=== PATIENT | male | born 1960 | race Caucasian/White ===

== ENCOUNTER → 2018-03-22 | Outpatient (CLI) | payer BC ==
--- NOTE | 2018-03-22 15:17 | XR ---
EXAMINATION TYPE: XR Hip Complete RT DATE OF EXAM: 03/22/2018 COMPARISON: NONE HISTORY: 57 year-old male right hip pain TECHNIQUE: 2 views FINDINGS: End-stage degenerative change of the right hip with complete loss of superolateral weightbearing join t space, [id number] articulation, subchondral sclerosis, marginal spurring, and early bony remodeli ng of the femoral head. No acute fracture or dislocation. IMPRESSION: End-stage right hip osteoarthrosis with [id number] abutment and early femoral head remodeling.
== END | disposition home or self-care (01) ==
LOC: RADXRMAIN 10:12
PROVIDERS: ATTEND Family Medicine
DX: M16.11 Unilateral primary osteoarthritis, right hip (principal)
CPT/HCPCS: 73502

== ENCOUNTER → 2018-06-21 | Outpatient (CLI) | payer BC ==
[2018-06-21 13:18] LABS: Appearance,Urine Clear (Clear); Bilirubin,Urine Negative (Negative); Blood,Urine Negative (Negative); Color,Urine Yellow; Glucose,Urine (UA) Negative (Negative); Ketones,Urine Negative (Negative); Leukocyte Esterase,Urine Negative (Negative); Nitrite,Urine Negative (Negative); Protein,Urine Negative (Negative); Specific Gravity,Urine 1.018 (1.001-1.035); Urobilinogen,Urine <2.0 mg/dL (<2.0)
== END | disposition home or self-care (01) ==
LOC: LABPAT 11:42
PROVIDERS: ATTEND Orthopaedic Surgery
DX: Z01.818 Encounter for other preprocedural examination (principal); Z01.812 Encounter for preprocedural laboratory examination
CPT/HCPCS: 81003; 87070; 93005

== ENCOUNTER → 2018-06-22 | Outpatient (CLI) | payer BC | END | disposition home or self-care (01) | LOC: LABPAT 08:36 | PROVIDERS: ATTEND Orthopaedic Surgery | DX: Z53.9 Procedure and treatment not carried out, unspecified reason (principal) ==

== ENCOUNTER → 2018-06-22 | Outpatient (CLI) | payer BC ==
[2018-06-22 10:23] LABS: Basophils % (A) 0 %; Eosinophils # (A) 0.2 k/uL (0-0.7); Eosinophils % (A) 2 %; HCT 47.5 % (39.0-53.0); HGB 15.3 gm/dL (13.0-17.5); Lymphocytes % (A) 22 %; MCH 30.1 pg (25.0-35.0); MCHC 32.3 g/dL (31.0-37.0); MCV 93.3 fL (80.0-100.0); Mean Platelet Volume 6.7; Monocytes # (A) 0.7 k/uL (0-1.0); Monocytes % (A) 8 %; Neutrophils % (A) 66 %; Platelet Count 304 k/uL (150-450); RBC 5.09 m/uL (4.30-5.90)
[2018-06-22 16:53] LABS: Albumin 4.3 g/dL (3.80-4.90); Albumin/Globulin Ratio 1.72 (1.20-2.10); Anion Gap 9.6 mmol/L (4.00-12.00); Calcium 9.3 mg/dL (8.7-10.3); Carbon Dioxide 26.4 mmol/L (21.6-31.8); Globulin 2.5 g/dL (2.1-3.7); Potassium 4.6 mmol/L (3.5-5.5); Total Bilirubin 0.6 mg/dL (0.2-1.2); Total Protein 6.8 g/dL (6.2-8.2)
[2018-06-22 17:03] LABS: T4, Free (Free Thyroxine) 1.2 ng/dL (0.80-1.80)
== END | disposition home or self-care (01) ==
LOC: LABWHC1 08:39
PROVIDERS: ATTEND Family Medicine
DX: Z00.00 Encounter for general adult medical examination without abnormal findings (principal); E78.00 Pure hypercholesterolemia, unspecified; Z85.46 Personal history of malignant neoplasm of prostate
CPT/HCPCS: 36415; 80053; 80061; 84153; 84439; 84443; 85025; 86850; 86900; 86901

== ENCOUNTER → 2018-06-28 | Outpatient (CLI) | payer BC ==
[2018-06-28 15:02] LABS: INR 0.9 (<1.2); Partial Thromboplastin Time 23.6 sec (22.0-30.0); Prothrombin Time 10.2 sec (9.0-12.0)
== END ==
LOC: LABPAT 14:07
PROVIDERS: ATTEND Orthopaedic Surgery
DX: Z01.818 Encounter for other preprocedural examination (principal)
CPT/HCPCS: 36415; 85610; 85730

== ENCOUNTER 2018-07-01 05:46 | Inpatient (IN) | payer BC ==
[2018-06-26 18:28] VITALS: BMI 33.7
[~2018-07-01 05:46] MED LIST: ACETAMINOPHEN TAB 500 MG TAB PO ONE; DEXAMETHASONE SOD PHOSPHATE 10 MG/ML 1 ML VIAL IV ONE; HYDROmorphone 1 MG/ML 1 ML SYRINGE IVP PRN; LIDOCAINE 1% 20 ML VIAL (10MG/ML) FOR IV START INTRADERMA PRN; MELOXICAM 7.5 MG TAB PO ONE; MIDAZOLAM 2 MG/2 ML VIAL IV PRN; ONDANSETRON 4 MG/2 ML VIAL IVP ONE; SCOPOLAMINE 1.5MG/72HR PATCH TRANSDERM ONE; TRANEXAMIC ACID 1,000 MG in SODIUM CHLORIDE 0.9% 50 ML IVPB ONE; ceFAZolin IN SWFI 2 GM/20 ML SYRINGE IVP ONE
[2018-07-01] MEDS ORDERED: ROPIVACAINE 246.25 MG, EPINEPHrine 0.5 MG, KETOROLAC 30 MG, cloNIDine HCL/PF 80 MCG, WA... MISCELLANE ONE ×5 (06:08)
[2018-07-01] MEDS ORDERED: LIDOCAINE 1% 20 ML VIAL (10MG/ML) FOR IV START INTRADERMA ONE (06:15)
[2018-07-01] MEDS ORDERED: LACTATED RINGERS 1,000 ML IV ONE ×2 (06:18→08:30)
[2018-07-01] MEDS ORDERED: ONDANSETRON 4 MG/2 ML VIAL IVP ONE (06:41)
[2018-07-01] MEDS ORDERED: DEXAMETHASONE SOD PHOS (MDV) 100 MG/10 ML VIAL IVP ONE (06:41)
[2018-07-01 06:55] LABS: Prothrombin Time 10.6 sec (9.0-12.0)
[2018-07-01] MEDS ORDERED: PHENYLEPHRINE-0.9% NACL SYG 1 MG/10 ML SYRINGE ONE (06:55)
[2018-07-01] MEDS ORDERED: DEXTROSE 5% IN WATER 250 ML BAG IV ONE (06:55)
[2018-07-01] MEDS ORDERED: MIDAZOLAM 2 MG/2 ML VIAL ONE (06:55)
[2018-07-01] MEDS ORDERED: BUPIVACAINE (PF) 0.5% 30 ML VIAL ONE (06:55)
[2018-07-01] MEDS ORDERED: SODIUM CHLORIDE 0.9% 100 ML BAG ONE (06:55)
[2018-07-01] MEDS ORDERED: ePHEDrine SULFATE/0.9% NACL/PF 50 MG/5 ML SYRINGE IV ONE (06:55)
[2018-07-01] MEDS ORDERED: fentaNYL (PF) 50 MCG/ML 2 ML AMP ONE (06:55)
[2018-07-01] MEDS ORDERED: TRANEXAMIC ACID 1,000 MG/10 ML VIAL ONE (06:55)
[2018-07-01] MEDS ORDERED: NALOXONE 0.4 MG/ML 1 ML VIAL IV PRN (06:56)
[2018-07-01] MEDS ORDERED: HYDROmorphone 1 MG/ML 1 ML SYRINGE IVP PRN ×3 (06:56)
[2018-07-01] MEDS ORDERED: HYDROcodone/APAP 5-325MG 1 EACH TAB PO PRN (06:56)
[2018-07-01] MEDS ORDERED: ONDANSETRON 4 MG/2 ML VIAL IVP PRN (06:56)
[2018-07-01] MEDS ORDERED: MAGNESIUM HYDROXIDE 2,400 MG/10 ML CUP PO PRN (06:56)
[2018-07-01] MEDS ORDERED: hydrOXYzine PAMOATE 25 MG CAP PO PRN (06:56)
[2018-07-01] MEDS ORDERED: DIAZEPAM 5 MG TAB PO PRN (06:56)
[2018-07-01] MEDS ORDERED: ceFAZolin 3,000 MG in SODIUM CHLORIDE 0.9% IRRIGATIO 3,000 ML IRRIGATION ONE (07:34)
--- NOTE | 2018-07-01 08:37 | P.OP ---
Date of Procedure: 07/01/18 Preoperative Diagnosis: Severe osteoarthritis right hip Postoperative Diagnosis: Severe osteoarthritis right hip Procedure(s) Performed: Right total hip arthroplasty with a direct anterior approach Implants: Helm and nephew Polarstem size 2 standard Helm & Nephew R3, 3 hole acetabular shell, 54 mm Helm & Nephew reflection 6.5 mm cancellus screw, 20 mm 2 Helm [employer] Nephew R3, XLPE 20 acetabular liner Helm & Nephew Oxinium femoral head 36 m, +4 All components were press-fit. The articulation is Oxinium on polyethylene. Anesthesia: spinal Surgeon: Lopez [place] Director #1: Karina Hough Estimated Blood Loss (ml): 150 (65 mL returned with Cell Saver) Pathology: other (Femoral head) Condition: stable Disposition: PACU Indications for Procedure: After failure of conservative treatment we discussed the surgical and nonsurgical treatment options at length. Patient wishes to proceed with a total hip arthroplasty with a direct anterior approach. Complications specific to this procedure were discussed at length, including but not limited to infection, leg length discrepancy, dislocation, and nerve injury. Patient is aware of all these complications and informed consent was obtained Operative Findings: The operative findings are consistent with severe osteoarthritis of the right hip Description of Procedure: Patient was seen and evaluated in the preoperative area, consent was reviewed, and the surgical site was marked with a skin marker. Patient was then brought to the operating room and given prophylactic antibiotics intravenously. 1 g of Tranexamic acid was also given. A spinal anesthetic was administered by the anesthesia department. The patient was then placed on the Dresden table with the bony prominences well-padded. The hip area was then prepped and draped in usual sterile fashion. A universal timeout was then performed, which confirmed the patient's name, surgical site, ALLERGIES, and procedure being performed. Next the incision site was located at 1 cm distal and 1 cm lateral to the anterior superior iliac spine. The skin and subcutaneous tissues were sharply incised. Incision was carefully dissected down to the fascia overlying the tensor fascia willam muscle. This fascia was then incised in line with the incision. Next, using blunt finger dissection, the tensor fascia willam muscle was dissected off its investing fascia. The muscle was then carefully retracted laterally with a cobra retractor over the lateral neck of the femur. Next, the circumflex vessels were identified and cauterized using the AquaMantis device. The anterior hip capsule was then exposed. The capsule was then opened and an inverted T fashion. Cobra retractors were then placed intracapsularly. The proximal femur was then visualized. The femoral neck was then osteotomized appropriate level above the lesser trochanter. Small amount of traction was placed with the Dresden table. A small wedge of bone was then removed from the remaining femoral head. Next, using a corkscrew femoral head was easily removed from the acetabulum. On gross visual inspection, the femoral head had complete loss of articular cartilage in multiple periarticular osteophytes. Attention was then turned to the acetabulum. the acetabulum was exposed and any remaining labrum was excised. Sequential reaming of the acetabulum was performed using fluoroscopic guidance. When the appropriate size was reached, a trial was then placed. The position and fit of the trial was checked with fluoroscopy. The trial was then removed. Then, using fluoroscopic guidance, the final implant was impacted at 20 of anteversion and 40 of abduction, and fully seated in the acetabulum. 2 screws were then placed in the acetabulum. Again fluoroscopy was used to check position of the screws. Next, the liner was then impacted, with a 20 elevated liner located in the anterior superior quadrant. Component locking was confirmed. Attention was then directed to the femur. With the aid of the Dresden table, the femur was externally rotated to approximately 130, extended, and abducted under the opposite leg. A side hook was then placed under the proximal femur, and the side hook elevator was used to elevate the proximal femur. Retractors were then placed. A capsular release was performed, as well as a release of the conjoined tendon, which afforded excellent visualization of the proximal femur. Next, a box osteotome was used to lateralize the proximal femur. A sail finisher hand was then used to locate the femoral canal. Sequential broaching was then performed with appropriate size which afforded excellent fixation in the proximal femur. A trial was then placed with appropriate head and neck, and the hip was gently reduced with the aid of the Dresden table. Fluoroscopy was then used to check position of the components, as well as to ensure equal leg lengths. The hip was then gently dislocated and the trials were then removed. Final implants were then impacted and the hip was again reduced. Final fluoroscopic x-rays confirmed that the components were in anatomic position, as well as equal leg lengths. The hip was also taken through range of motion, and found to be stable. The hip was then copiously irrigated with antibiotic solution with pulsatile lavage. The hip was then irrigated with Irrisept solution. The soft tissues were then injected with a ropivacaine solution, which consisted of 246.25 mg of ropivacaine, 0.5 mg of epinephrine, 30 mg of Toradol, 80 g of clonidine, and 48.45 mL of sterile water, for a total of 100 mL of fluid injected. A second dose of 1 g of Tranexamic acid was also given. the fascia was then closed with 2-0 strata fix suture. The subcutaneous tissue was closed with 3-0 Vicryl. The subcuticular tissue was closed with 3-0 strata fix suture. The skin was then closed with Dermabond glue and a sterile silver dressing. The patient was then transferred to the recovery room in stable condition. The property assistant ANUPAMA Rodriguez was required due to the complexity of surgery, and the need for skilled surgical services coordinator for positioning, draping, exposure, retraction, and closure of the wound.
--- NOTE | 2018-07-01 08:41 | XR ---
Fluoroscopy INDICATION: Pain FINDINGS: Fluoroscopy time: 59 seconds. Images obtained: 2. IMPRESSIONS: 1. Documentation of fluoroscopy.
--- NOTE | 2018-07-01 09:35 | XR ---
EXAMINATION TYPE: XR Hip Limited RT DATE OF EXAM: 07/01/2018 COMPARISON: 03/22/2018 HISTORY: Right hip prosthesis placement TECHNIQUE: Single AP right hip FINDINGS: Prosthesis is articulating with the acetabular component. No acute fractures are evident. P ostsurgical changes are within soft tissues. IMPRESSION: 1. No acute fractures post right hip replacement.
[2018-07-01] MEDS: LACTATED RINGERS 1,000 ML IV SCH ×2 (09:44→18:59)
[2018-07-01] MEDS: SODIUM CHLORIDE 0.9% 1,000 ML IV SCH ×2 (10:55→23:23)
[2018-07-01] MEDS: ceFAZolin IN SWFI 2 GM/20 ML SYRINGE IVP SCH ×2 (15:34→23:13)
[2018-07-01] MEDS ORDERED: RIVAROXABAN 10 MG TAB PO SCH (21:00)
[2018-07-01] MEDS ORDERED: SENNOSIDES-DOCUSATE SODIUM 1 EACH TAB PO SCH (21:00)
[2018-07-01] MEDS: HYDROcodone/APAP 5-325MG 1 EACH TAB PO PRN (23:21)
[2018-07-02] MEDS: HYDROcodone/APAP 5-325MG 1 EACH TAB PO PRN (08:12)
[2018-07-02 08:18] VITALS: BP 121/72; PULSE 90; RESP 16; TEMP 98
--- NOTE | 2018-07-02 09:36 | P.DS ---
Providers Date of admission: 07/01/18 05:46 Expected date of discharge: 07/02/18 Attending physician: Lopez Willis Consults: 07/01/18 06:56 Consult Physician Routine Consulting Provider: Glen Degroot Consult Reason/Comments: medical management Do you want consulting provider notified?: Yes Primary care physician: Glen Degroot - Discharge Diagnosis(es) (1) Primary osteoarthritis of right hip Current Visit: Yes Status: Acute (2) S/P total hip arthroplasty Current Visit: Yes Status: Acute Hospital Course: This is a 57-year-old male with known history of degenerative arthritis of the right hip. The patient presents for evaluation. After discussion and consideration patient elects to proceed with total hip arthroplasty. The patient is seen preoperatively by Dr. Willis and medically cleared for surgery by their primary care physician. Patient is admitted to [facility] on 07/01/2018 for total hip arthroplasty. The procedures performed without complication or sequelae. The patient is doing well postoperatively. Labs and vital signs are stable on day of discharge. On day of discharge patient's hip incision is healing well. There is minimal erythema. There is no drainage noted at this time. There is minimal soft tissue swelling to the hip and thigh. Patient has full foot and ankle motion without difficulty or pain. Neurovascular status to the right lower extremity is intact. Patient is discharged home in good condition. Please see med rec for accurate list of home medications. Plan - Discharge Summary Discharge Rx Participant: Yes New Discharge Prescriptions: New HYDROcodone/APAP 5-325MG [[place] 5-325] 1 - 2 tab PO Q4-6H PRN #84 tab PRN Reason: Pain Rivaroxaban [Xarelto] 10 mg PO DAILY #34 tab Sennosides [Senokot] 1 tab PO BID #60 tablet No Action Fenofibrate [Tricor] 160 mg PO AC-SUPPER Acetaminophen [Tylenol Extra Strength] 500 - 1,000 mg PO Q6H PRN PRN Reason: Pain Ibuprofen [Motrin Ib] 400 mg PO Q6H PRN PRN Reason: Pain Discharge Medication List Fenofibrate [Tricor] 160 mg PO AC-SUPPER 11/26/14 [History] Acetaminophen [Tylenol Extra Strength] 500 - 1,000 mg PO Q6H PRN 06/26/18 [ History] Ibuprofen [Motrin Ib] 400 mg PO Q6H PRN 06/26/18 [History] HYDROcodone/APAP 5-325MG [[place] 5-325] 1 - 2 tab PO Q4-6H PRN #84 tab 07/02/18 [ Rx] Rivaroxaban [Xarelto] 10 mg PO DAILY #34 tab 07/02/18 [Rx] Sennosides [Senokot] 1 tab PO BID #60 tablet 07/02/18 [Rx] Follow up Appointment(s)/Referral(s): Lopez Willis DO [Doctor of Osteopathic Medicine] - 2 Weeks Activity/Diet/Wound Care/Special Instructions: Weightbearing as tolerated with walker. Leave dressing intact. Dressing may be removed by home care nurse in 10 days. May shower with dressing on. Please follow-up with [facility] in 2 weeks and call with any questions or concerns, . Discharge Disposition: HOME WITH HOME HEALTH SERVICES
[2018-07-02 10:11] LABS: Basophils % (A) 0 %; Eosinophils # (A) 0.2 k/uL (0-0.7); Eosinophils % (A) 1 %; HCT 38.3 % (39.0-53.0); HGB 12.4 gm/dL (13.0-17.5); Lymphocytes # (A) 1.8 k/uL (1.0-4.8); Lymphocytes % (A) 13 %; MCHC 32.5 g/dL (31.0-37.0); MCV 92.3 fL (80.0-100.0); Mean Platelet Volume 6.7; Monocytes # (A) 1.2 k/uL (0-1.0); Monocytes % (A) 9 %; Neutrophils % (A) 74 %; Platelet Count 258 k/uL (150-450); RBC 4.14 m/uL (4.30-5.90); WBC 13.5 k/uL (3.8-10.6)
[2018-07-02] MEDS ORDERED: FENOFIBRATE 160 MG TAB PO SCH (17:30)
== END 2018-07-02 13:23 | disposition home health service (06) | DRG 470 ==
LOC: 2ORMAIN 05:46 → 4SSUR 08:53
PROVIDERS: ADMIT Orthopaedic Surgery; ATTEND Orthopaedic Surgery
PROC: 0SR906A Replacement of Right Hip Joint with Oxidized Zirconium on Polyethylene Synthetic Substitute, Uncemented, Open Approach (ICD-10-PCS; principal; 2018-07-01 07:00)
DX: M16.11 Unilateral primary osteoarthritis, right hip (principal); E78.5 Hyperlipidemia, unspecified; H91.90 Unspecified hearing loss, unspecified ear; Z79.899 Other long term (current) drug therapy; Z85.46 Personal history of malignant neoplasm of prostate; Z86.718 Personal history of other venous thrombosis and embolism; Z91.013 Allergy to seafood; Z91.041 Radiographic dye allergy status
CPT/HCPCS: 73501; 85025; 85610; 86850; 86900; 86901; 88300

== ENCOUNTER 2019-08-05 06:47 | Emergency (ER) | payer BC ==
--- NOTE | 2019-08-05 07:31 | ED ---
General Adult HPI - General Chief complaint: Extremity Problem,Nontraumatic Stated complaint: leg pain Time Seen by Provider: 08/05/19 07:09 Source: patient, RN notes reviewed Mode of arrival: ambulatory Limitations: no limitations - History of Present Illness Initial comments: Patient is a pleasant 58-year-old male presenting to the emergency Department with complaints of left leg discomfort. Onset of symptoms was a couple of days ago. Discomfort has somewhat increased since that time. Patient does have history of similar symptoms. See so she with DVT. Patient is no longer on anticoagulants. Patient denies any chest discomfort or dyspnea. No leg swelling. Patient has chronic discoloration that is unchanged. - Related Data Home Medications Medication Instructions Recorded Confirmed Fenofibrate [Lofibra] 160 mg PO AC-SUPPER 11/26/14 07/01/18 Acetaminophen [Tylenol Extra 500 - 1,000 mg PO Q6H PRN 06/26/18 07/01/18 Strength] Previous Rx's Medication Instructions Recorded HYDROcodone/APAP 5-325MG [[place] 1 - 2 tab PO Q4-6H PRN #84 tab 07/02/18 5-325] Rivaroxaban [Xarelto] 10 mg PO DAILY #34 tab 07/02/18 Sennosides [Senokot] 1 tab PO BID #60 tablet 07/02/18 Apixaban [Eliquis Starter Pack 0 mg PO DIRECTED 30 Days #1 pack 08/05/19 (for VTE)] Allergies Allergy/AdvReac Type Severity Reaction Status Date / Time Iodinated Contrast Media AdvReac Unknown Verified 08/05/19 06:57 [Iodinated Contrast- Oral and IV Dye] shellfish derived AdvReac NASAL SX, Verified 08/05/19 06:57 THROAT SCRATCHY, POSITIVE ALLERGY TESTING Review of Systems ROS Statement: Those systems with pertinent positive or pertinent negative responses have been documented in the HPI. ROS Other: All systems not noted in ROS Statement are negative. Constitutional: Denies: fever Eyes: Denies: eye pain ENT: Denies: ear pain Respiratory: Denies: cough, dyspnea Cardiovascular: Denies: chest pain Endocrine: Denies: fatigue Gastrointestinal: Denies: abdominal pain, vomiting Genitourinary: Denies: dysuria Musculoskeletal: Reports: as per HPI Skin: Reports: as per HPI Past Medical History Past Medical History: Cancer, Deep Vein Thrombosis (DVT), Hyperlipidemia, Prostate Disorder Additional Past Medical History / Comment(s): Prostate cancer History of Any Multi-Drug Resistant Organisms: None Reported Past Surgical History: Hernia Repair Additional Past Surgical History / Comment(s): prostate removed Past Anesthesia/Blood Transfusion Reactions: No Reported Reaction Past Psychological History: No Psychological Hx Reported Smoking Status: Never smoker Past Alcohol Use History: Occasional Past Drug Use History: None Reported - Past Family History Mother Family Medical History: Cancer Additional Family Medical History / Comment(s): PANCREATIC Father Family Medical History: Cancer Additional Family Medical History / Comment(s): PARKINSON'S General Exam Limitations: no limitations General appearance: alert, in no apparent distress Head exam: Present: normocephalic Eye exam: Present: normal appearance Neck exam: Present: normal inspection Respiratory exam: Present: normal lung sounds bilaterally Cardiovascular Exam: Present: regular rate, normal rhythm Expanded Peripheral pulses: 2+: Dorsalis Pedis (R), Dorsalis Pedis (L) GI/Abdominal exam: Present: soft. Absent: distended, tenderness Extremities exam: Absent: pedal edema, calf tenderness Neurological exam: Present: alert Psychiatric exam: Present: normal affect, normal mood Skin exam: Present: other (Left anterior robles with brownish discoloration patch that the patient states is chronic and unchanged) Course Vital Signs 08/05/19 06:53 Temperature 99.2 F Pulse Rate 91 Respiratory 20 Rate Blood Pressure 141/80 O2 Sat by Pulse 99 Oximetry Medical Decision Making - Medical Decision Making Patient reevaluated and updated. - Radiology Data Radiology results: report reviewed (Ultrasound left leg shows DVT left femoral vein. This may be chronic. Recurrent acute thrombus as possible. Thrombosis seen throughout greater saphenous vein as well) Disposition Clinical Impression: Deep vein thrombosis (DVT) of lower extremity Disposition: HOME SELF-CARE Condition: Serious Instructions (If sedation given, give patient instructions): Deep Vein Thrombosis (ED) Additional Instructions: Please follow-up with primary care physician in the next couple of days for recheck. Return for chest pain or difficulty in breathing, increased leg discomfort or swelling, worsening symptoms or other concerns. Prescriptions: Apixaban [Eliquis Starter Pack (for VTE)] 0 mg PO DIRECTED 30 Days #1 pack Is patient prescribed a controlled substance at d/c from ED?: No Referrals: Glen Degroot MD [Primary Care Provider] - 1-2 days Time of Disposition: 08:39
--- NOTE | 2019-08-05 08:21 | US ---
EXAMINATION TYPE: US venous doppler duplex LE LT DATE OF EXAM: 08/05/2019 8:00 AM COMPARISON: NONE CLINICAL HISTORY: pain. Palpable and pain starting at medial left ankle running up through thigh, no h/o DVT, h/o SVT 5-6 yrs ago reviewing history patient did have chronic left DVT SIDE PERFORMED: Left TECHNIQUE: The lower extremity deep venous system is examined utilizing real time linear array sonog kristin with graded compression, doppler sonography and color-flow sonography. VESSELS IMAGED: External Iliac Vein (EIV) Common Femoral Vein Deep Femoral Vein Greater Saphenous Vein * Femoral Vein Popliteal Vein Small Saphenous Vein * Proximal Calf Veins (* superficial vessels) Left Leg: Patient states no h/o DVT, patient has duplicate femoral vein and [place] vein appears to [place] ve DVT with internal echoes, not fully compressible and thready flow. Unable to compress GSV from ankle up through high thigh, dilated with internal echoes, no flow seen. IMPRESSION: 1. Deep venous thrombosis is seen within the left lower extremity within the femoral vein. This may b e chronic as some flow is seen and the venous thrombosis was evident at this site on 07/28/2012. Altern atively recurrent acute thrombus is possible. 2. Venous thrombosis throughout the greater saphenous vein from the ankle through the thigh.
[2019-08-05] MEDS ORDERED: APIXABAN 5 MG TAB PO STA (08:37)
[2019-08-05 08:56] VITALS: BP 138/90; PULSE 83; RESP 18; TEMP 98.2
== END 2019-08-05 08:54 | disposition home or self-care (01) ==
LOC: EC 06:47
DX: I82.412 Acute embolism and thrombosis of left femoral vein (principal); R23.8 Other skin changes; E78.5 Hyperlipidemia, unspecified; Z91.013 Allergy to seafood; Z91.041 Radiographic dye allergy status; Z79.899 Other long term (current) drug therapy; Z85.46 Personal history of malignant neoplasm of prostate; Z90.79 Acquired absence of other genital organ(s)
CPT/HCPCS: 99283

== ENCOUNTER → 2019-08-16 | Outpatient (CLI) | payer BC ==
[2019-08-16 09:03] LABS: Basophils # (A) 0.1 k/uL (0-0.2); Basophils % (A) 2 %; Eosinophils # (A) 0.3 k/uL (0-0.7); Eosinophils % (A) 3 %; HCT 49.5 % (39.0-53.0); HGB 15.6 gm/dL (13.0-17.5); Lymphocytes # (A) 1.9 k/uL (1.0-4.8); Lymphocytes % (A) 21 %; MCH 29.7 pg (25.0-35.0); MCHC 31.6 g/dL (31.0-37.0); MCV 93.9 fL (80.0-100.0); Mean Platelet Volume 6.8; Monocytes # (A) 0.7 k/uL (0-1.0); Monocytes % (A) 8 %; Neutrophils # (A) 5.7 k/uL (1.3-7.7); Neutrophils % (A) 64 %; Platelet Count 379 k/uL (150-450); RBC 5.27 m/uL (4.30-5.90); RDW 12.4 % (11.5-15.5)
[2019-08-16 16:50] LABS: African American GFR (CKD) 84.1 (60.0-200.0); Albumin 4.5 g/dL (3.80-4.90); Albumin/Globulin Ratio 1.8 (1.60-3.17); Anion Gap 6.9 mmol/L (4.00-12.00); BUN/Creat Ratio 21.82 Ratio (12.00-20.00); Calcium 9.6 mg/dL (8.7-10.3); Carbon Dioxide 27.1 mmol/L (21.6-31.8); Chol/HDL Ratio 3.82; Globulin 2.5 g/dL (1.6-3.3); LDL Cholesterol,Calculated 107.6 mg/dL (0.0-131.0); Non-African American GFR(CKD) 72.6 (60.0-200.0); Potassium 4.8 mmol/L (3.5-5.5); Total Bilirubin 0.5 mg/dL (0.3-1.2); VLDL Calculation 19.4 mg/dL (5.00-40.00)
[2019-08-16 16:58] LABS: T4, Free (Free Thyroxine) 1.2 ng/dL (0.80-1.80)
== END | disposition home or self-care (01) ==
LOC: LABWHC1 08:01
PROVIDERS: ATTEND Nurse Practitioner Family
DX: Z00.00 Encounter for general adult medical examination without abnormal findings (principal); Z85.46 Personal history of malignant neoplasm of prostate
CPT/HCPCS: 36415; 80053; 80061; 84153; 84439; 84443; 85025

== ENCOUNTER → 2019-09-08 | Outpatient (CLI) | payer BC ==
--- NOTE | 2019-09-08 16:56 | CT ---
EXAMINATION TYPE: CT abdomen pelvis wo con DATE OF EXAM: 09/08/2019 COMPARISON: None HISTORY: Gross hematuria CT DLP: 1007 mGycm Automated exposure control for dose reduction was used. Multiple axial sections were obtained from the diaphragm to the floor the pelvis with no contrast. Lung bases are clear. There is no pleural effusion. Heart size is normal. There is no pericardial eff usion. Stomach appears normal. Liver spleen pancreas gallbladder appear normal. Bile ducts are not dilated. There is no adrenal mass. Kidneys have normal size and contour. There is no hydronephrosis. Ureters a re not dilated. There is 2 mm calculus lower pole left kidney. There is no retroperitoneal adenopathy . Appendix is posterior and appears normal. Bladder distends smoothly. There is metal artifact from right hip prosthesis. Left hip is intact. Bon y pelvis is intact. There is no inguinal hernia. There are multiple sigmoid diverticula. There is no sign of diverticulitis. There is no mesenteric edema. There is no ascites or free air. I see no bowel obstruction. There are spondylotic changes in the lumbar spine. There is a mild degenerative first-degree L4-5 spo ndylolisthesis. There is narrowing of L5-S1 disc space with spurring. The bony pelvis is intact. IMPRESSION: Colonic diverticulosis without diverticulitis. Normal appendix. Nonobstructing left renal calculus.
== END | disposition home or self-care (01) ==
LOC: RADCTMAIN 16:17
PROVIDERS: ATTEND Family Medicine
DX: K57.30 Diverticulosis of large intestine without perforation or abscess without bleeding (principal); N20.0 Calculus of kidney; Z91.013 Allergy to seafood
CPT/HCPCS: 74176

== ENCOUNTER 2020-04-16 10:15 | Emergency (ER) | payer BC ==
[2020-04-16 10:31] VITALS: TEMP 97.8
[2020-04-16] MEDS ORDERED: ONDANSETRON 4 MG/2 ML VIAL IVP STA (10:53)
[2020-04-16] MEDS ORDERED: KETOROLAC 15 MG/ML 1 ML VIAL IVP STA (10:53)
--- NOTE | 2020-04-16 10:57 | ED ---
Male Urogenital HPI - General Chief complaint: Urogenital Stated complaint: lower back pain/painful urination Time Seen by Provider: 04/16/20 10:34 Source: patient Mode of arrival: ambulatory Limitations: no limitations - History of Present Illness Initial comments: 59-year-old male presenting for right flank pain that radiates towards her groin with dysuria. Patient states that today he noticed right back pain that radiated towards his groin he states he's also had painful urination. Patient states she has had a kidney stone the past. Patient states that last month he had somewhat similar symptoms and had some noted pink color to his urine. Butch whelan did not note that today. Patient states she has felt nauseated and has dry heat from the pain. Patient states the pain persisted he left work and presented to the ER for evaluation and treatment. Denies testicular pain or swelling or current groin pain. Patient is no additional complaints he denies any fevers chills general malaise chest pain shortness of breath. Patient appears nontoxic on arrival but does appear uncomfortable. - Related Data Home Medications Medication Instructions Recorded Confirmed Fenofibrate [Lofibra] 160 mg PO AC-SUPPER 11/26/14 08/05/19 Ibuprofen [Motrin Ib] 200 mg PO Q4H PRN 08/05/19 08/05/19 Previous Rx's Medication Instructions Recorded Apixaban [Eliquis Starter Pack 0 mg PO DIRECTED 30 Days #1 pack 08/05/19 (for VTE)] Cephalexin [Keflex] 500 mg PO Q6HR 7 Days #28 cap 04/16/20 Allergies Allergy/AdvReac Type Severity Reaction Status Date / Time Iodinated Contrast Media AdvReac Unknown Verified 04/16/20 10:31 [Iodinated Contrast- Oral and IV Dye] shellfish derived AdvReac NASAL SX, Verified 04/16/20 10:31 THROAT SCRATCHY, POSITIVE ALLERGY TESTING Review of Systems ROS Statement: Those systems with pertinent positive or pertinent negative responses have been documented in the HPI. ROS Other: All systems not noted in ROS Statement are negative. Past Medical History Past Medical History: Cancer, Deep Vein Thrombosis (DVT), Hyperlipidemia, Prostate Disorder Additional Past Medical History / Comment(s): Prostate cancer History of Any Multi-Drug Resistant Organisms: None Reported Past Surgical History: Hernia Repair Additional Past Surgical History / Comment(s): prostate removed Past Anesthesia/Blood Transfusion Reactions: No Reported Reaction Past Psychological History: No Psychological Hx Reported Smoking Status: Never smoker Past Alcohol Use History: Occasional Past Drug Use History: None Reported - Past Family History Mother Family Medical History: Cancer Additional Family Medical History / Comment(s): PANCREATIC Father Family Medical History: Cancer Additional Family Medical History / Comment(s): PARKINSON'S General Exam - General Exam Comments Initial Comments: General: The patient is awake and alert, in good spirits but appears uncomfortable. Eye: +3 mm pupils are equal, round and reactive to light, extra-ocular movements are intact. No nystagmus. There is normal conjunctiva bilaterally. No signs of icterus. Ears, nose, mouth and throat: There are moist mucous membranes and no oral lesions. Neck: The neck is supple, there is no tenderness or JVD. Cardiovascular: There is a regular rate and rhythm. No murmur, rub or gallop is appreciated. Respiratory: Lungs are clear to auscultation, respirations are non-labored, breath sounds are equal. No wheezes, stridor, rales, or rhonchi. Gastrointestinal: Soft, non-distended, non-tender abdomen without masses or organomegaly noted. There is no rebound or guarding present. Musculoskeletal: Normal ROM, no tenderness. Strength 5/5. Sensation intact. Radial pulses equal bilaterally 2+. Neurological: A&O x 3. CN II-XII intact grossly, There are no obvious motor or sensory deficits. Coordination appears grossly intact. Speech is normal. Skin: Skin is warm and dry and no rashes or lesions are noted. Psychiatric: Cooperative, appropriate mood & affect, normal judgment. Limitations: no limitations Course Vital Signs 04/16/20 04/16/20 10:27 12:47 Temperature 97.8 F 97.8 F Pulse Rate 75 78 Respiratory 18 16 Rate Blood Pressure 149/80 148/78 O2 Sat by Pulse 99 98 Oximetry Medical Decision Making - Medical Decision Making CT (-) for acute stone. pain improved. bacteria in urine. Patient labs stable, VS stable. No groin pain or testicular swelling. Patient case discussed with Dr. Brandt at this time we feel patient is table for discharge on antibiotics with urology f/u. Patient is agreeable and prefers discharge, stating he will call urology today. - Lab Data Result diagrams: 04/16/20 11:09 04/16/20 11:09 Lab Results 04/16/20 04/16/20 04/16/20 Range/Units 10:57 11:09 11:09 WBC 10.3 (3.8-10.6) k/uL RBC 4.97 (4.30-5.90) m/uL Hgb 15.3 (13.0-17.5) gm/dL Hct 45.3 (39.0-53.0) % MCV 91.2 (80.0-100.0) fL MCH 30.8 (25.0-35.0) pg MCHC 33.8 (31.0-37.0) g/dL RDW 12.8 (11.5-15.5) % Plt Count 313 (150-450) k/uL Neutrophils % 82 % Lymphocytes % 13 % Monocytes % 4 % Eosinophils % 1 % Basophils % 0 % Neutrophils # 8.4 H (1.3-7.7) k/uL Lymphocytes # 1.3 (1.0-4.8) k/uL Monocytes # 0.4 (0-1.0) k/uL Eosinophils # 0.1 (0-0.7) k/uL Basophils # 0.0 (0-0.2) k/uL Sodium 135 L (137-145) mmol/L Potassium 4.6 (3.5-5.1) mmol/L Chloride 102 (98-107) mmol/L Carbon Dioxide 24 (22-30) mmol/L Anion Gap 9 mmol/L BUN 17 (9-20) mg/dL Creatinine 0.89 (0.66-1.25) mg/dL Est GFR (CKD-EPI)AfAm >90 (>60 ml/min/1.73 sqM) Est GFR (CKD-EPI)NonAf >90 (>60 ml/min/1.73 sqM) Glucose 115 H (74-99) mg/dL Calcium 9.2 (8.4-10.2) mg/dL Total Bilirubin 0.8 (0.2-1.3) mg/dL AST 31 (17-59) U/L ALT 26 (4-49) U/L Alkaline Phosphatase 55 (38-126) U/L Total Protein 7.5 (6.3-8.2) g/dL Albumin 4.4 (3.5-5.0) g/dL Urine Color Yellow Urine Appearance Cloudy (Clear) Urine pH 7.5 (5.0-8.0) Ur Specific [place] 1.016 (1.001-1.035) Urine Protein Negative (Negative) Urine Glucose (UA) Negative (Negative) Urine Ketones Negative (Negative) Urine Blood Negative (Negative) Urine Nitrite Negative (Negative) Urine Bilirubin Negative (Negative) Urine Urobilinogen <2.0 (<2.0) mg/dL Ur Leukocyte Esterase Negative (Negative) Urine RBC 2 (0-5) /hpf Urine WBC 1 (0-5) /hpf Amorphous Sediment Occasional H (None) /hpf Urine Bacteria Rare H (None) /hpf Urine Mucus Rare H (None) /hpf Disposition Clinical Impression: Dysuria, Right flank pain, Bacteria in urine Disposition: HOME SELF-CARE Condition: Good Instructions (If sedation given, give patient instructions): Urinary Tract Infection in Men (ED) Additional Instructions: Please use medication as discussed. Please follow-up with family doctor in the next 2 days, as well as Dr. Diaz in next week. Please return to emergency r oom if the symptoms increase or worsen or for any other concerns. Prescriptions: Cephalexin [Keflex] 500 mg PO Q6HR 7 Days #28 cap Is patient prescribed a controlled substance at d/c from ED?: No Referrals: Glen Degroot MD [Primary Care Provider] - 1-2 days Juan Pablo Diaz MD [STAFF PHYSICIAN] - 1-2 days Time of Disposition: 12:26
[2020-04-16 11:20] LABS: Basophils % (A) 0 %; Eosinophils # (A) 0.1 k/uL (0-0.7); Eosinophils % (A) 1 %; HCT 45.3 % (39.0-53.0); HGB 15.3 gm/dL (13.0-17.5); Lymphocytes # (A) 1.3 k/uL (1.0-4.8); Lymphocytes % (A) 13 %; MCH 30.8 pg (25.0-35.0); MCHC 33.8 g/dL (31.0-37.0); MCV 91.2 fL (80.0-100.0); Mean Platelet Volume 6.5; Monocytes # (A) 0.4 k/uL (0-1.0); Monocytes % (A) 4 %; Neutrophils # (A) 8.4 k/uL (1.3-7.7); Neutrophils % (A) 82 %; Platelet Count 313 k/uL (150-450); RBC 4.97 m/uL (4.30-5.90); RDW 12.8 % (11.5-15.5); WBC 10.3 k/uL (3.8-10.6)
[2020-04-16 11:38] LABS: ALT 26 U/L (4-49); AST 31 U/L (17-59); African American GFR (CKD) >90 (>60 ml/min/1.73 sqM); Albumin 4.4 g/dL (3.5-5.0); Alkaline Phosphatase 55 U/L (38-126); Anion Gap 9 mmol/L; Blood Urea Nitrogen 17 mg/dL (9-20); Calcium 9.2 mg/dL (8.4-10.2); Carbon Dioxide 24 mmol/L (22-30); Chloride 102 mmol/L (98-107); Glucose 115 mg/dL (74-99); Non-African American GFR(CKD) >90 (>60 ml/min/1.73 sqM); Potassium 4.6 mmol/L (3.5-5.1); Sodium 135 mmol/L (137-145); Total Bilirubin 0.8 mg/dL (0.2-1.3); Total Protein 7.5 g/dL (6.3-8.2)
[2020-04-16 11:47] LABS: Amorphous Sediment,Urine Occasional /hpf; Appearance,Urine Cloudy (Clear); Bacteria,Urine Rare /hpf; Bilirubin,Urine Negative (Negative); Blood,Urine Negative (Negative); Color,Urine Yellow; Glucose,Urine (UA) Negative (Negative); Ketones,Urine Negative (Negative); Leukocyte Esterase,Urine Negative (Negative); Mucus,Urine Rare /hpf; Nitrite,Urine Negative (Negative); PH, Urine 7.5 (5.0-8.0); Protein,Urine Negative (Negative); RBC,Urine 2 /hpf (0-5); Specific Gravity,Urine 1.016 (1.001-1.035); Urobilinogen,Urine <2.0 mg/dL (<2.0); WBC,Urine 1 /hpf (0-5)
--- NOTE | 2020-04-16 12:18 | CT ---
EXAMINATION TYPE: CT abdomen pelvis wo con DATE OF EXAM: 04/16/2020 COMPARISON: CT 09/08/2019 HISTORY: Right flank pain CT DLP: 955.5 mGycm Automated exposure control for dose reduction was used. TECHNIQUE: Helical acquisition of images from the lung bases through the pelvis. FINDINGS: Lack of contrast could compromise sensitivity of the exam. LUNG BASES: No significant abnormality is appreciated. AORTA: No significant abnormality is appreciataed. LIVER/GB: No significant abnormality is appreciated. PANCREAS: No significant abnormality is seen. SPLEEN: No significant abnormality is seen. ADRENALS: No significant abnormality is seen. KIDNEYS: Nonobstructive left renal calculus is again seen.. REPRODUCTIVE ORGANS: Calcification seen at the level of the prostate is again noted, this is thought to be in close proximity to the prostatic urethra and measures approximately 1 cm in size. URINARY BLADDER: No significant abnormality is seen. BOWEL: Diverticular changes associated with the colon. FREE AIR: No Free Air is visible. ASCITES: None visible. PELVIC ADENOPATHY: None visualized. RETROPERITONEAL ADENOPATHY: No Retroperitoneal Adenopathy visible. OSSEOUS STRUCTURES: Degenerative disc changes are present in the lumbar spine. There is some associa mel facet arthropathy lower lumbar spine. Streak artifact from patient's right hip prosthesis is pres ent. IMPRESSION: Findings are similar to prior exam. Consider urology consult for calcification at the junction of the inferior margin of the urinary bladder and prostate, nonobstructive left nephrolithiasis. Diverticul osis. Noncontrast exam. Degenerative disc disease and facet arthropathy.
[2020-04-16 12:48] VITALS: BP 148/78; PULSE 78; RESP 16
== END 2020-04-16 12:47 | disposition home or self-care (01) ==
LOC: EC 10:15
DX: R10.31 Right lower quadrant pain (principal); R82.71 Bacteriuria; R30.0 Dysuria; E78.5 Hyperlipidemia, unspecified; Z79.899 Other long term (current) drug therapy; Z85.46 Personal history of malignant neoplasm of prostate; Z90.79 Acquired absence of other genital organ(s); Z91.013 Allergy to seafood; Z91.041 Radiographic dye allergy status; Z80.0 Family history of malignant neoplasm of digestive organs
CPT/HCPCS: 36415; 80053; 85025; 81001; 87086; 74176; 99284; 96374; 96375; J2405; J1885

== ENCOUNTER → 2020-06-04 | Outpatient (CLI) | payer BC | END | disposition home or self-care (01) | LOC: LABWHC1 12:33 | PROVIDERS: ATTEND Nurse Practitioner Family | DX: Z01.818 Encounter for other preprocedural examination (principal) | CPT/HCPCS: 36415; 93005 ==

== ENCOUNTER → 2021-08-03 | Outpatient (CLI) | payer BC ==
--- NOTE | 2021-08-03 09:49 | CT ---
EXAMINATION TYPE: CT abdomen pelvis wo con DATE OF EXAM: 08/03/2021 COMPARISON: 04/16/2020 HISTORY: Lt flank pain CT DLP: 778.70 mGycm Automated exposure control for dose reduction was used. TECHNIQUE: Helical acquisition of images was performed from the lung bases through the pelvis. FINDINGS: LUNG BASES: No significant abnormality is appreciated. LIVER/GB: No significant abnormality is appreciated. PANCREAS: No significant abnormality is seen. SPLEEN: No significant abnormality is seen. ADRENALS: No significant abnormality is seen. KIDNEYS: Stable 2 sub-5 mm left renal calculi with no hydronephrosis. No sizable right renal calculi or hydronephrosis ADENOPATHY: None visualized. OSSEOUS STRUCTURES: Postsurgical change involving the right hip. Hypertrophic and degenerative [place] es of the spine. Grade 1 anterolisthesis L4 on L5 with facet arthropathy and multilevel foraminal enc roachment BOWEL: Diverticulosis of the colon. Appendix normal. Bowel gas pattern is nonspecific though obstruc tion. OTHER: Aorta of normal caliber with atherosclerotic changes. IMPRESSION: STABLE SUB-5 MM LEFT RENAL CALCULI WITH NO EVIDENCE OF HYDRONEPHROSIS.
== END | disposition home or self-care (01) ==
LOC: RADCTMAIN 08:51
PROVIDERS: ATTEND Family Medicine
DX: N20.0 Calculus of kidney (principal)
CPT/HCPCS: 74176

== ENCOUNTER 2024-01-01 11:41 | Day surgery (SDC) | payer BC ==
[2023-12-31 08:49] VITALS: BMI 29.0
[2024-01-01 12:04] VITALS: TEMP 97.4
[2024-01-01] MEDS: LACTATED RINGERS 1,000 ML IV SCH (12:13)
[2024-01-01] MEDS ORDERED: PROPOFOL 10 MG/ML 20 ML VIAL IV ONE (13:00)
--- NOTE | 2024-01-01 13:04 | P.GSHP ---
History of Present Illness H&P Date: 01/01/24 Chief Complaint: Colon cancer screening 63-year-old here for colonoscopy. Last colonoscopy 10 years ago. No bowel complaints. No family history of colon cancer. Past Medical History Past Medical History: Cancer, Deep Vein Thrombosis (DVT), Hyperlipidemia, Prostate Disorder Additional Past Medical History / Comment(s): Prostate cancer, History of Any Multi-Drug Resistant Organisms: None Reported Past Surgical History: Hernia Repair, Joint Replacement, Orthopedic Surgery Additional Past Surgical History / Comment(s): prostate removed, right hip replacement, arthroplasty to left thumbm colonoscopy Past Anesthesia/Blood Transfusion Reactions: No Reported Reaction Additional Past Anesthesia/Blood Transfusion Reaction / Comment(s): no blood transfusion Smoking Status: Never smoker - Past Family History Mother Family Medical History: Cancer Additional Family Medical History / Comment(s): PANCREATIC Father Family Medical History: Cancer Additional Family Medical History / Comment(s): PARKINSON'S, skin Medications and Allergies Home Medications Medication Instructions Recorded Confirmed Type Fenofibrate [Lofibra] 160 mg PO AC-SUPPER 11/26/14 01/01/24 History Apixaban [Eliquis Starter Pack 0 mg PO DIRECTED 30 Days #1 pack 08/05/19 01/01/24 Rx (for VTE)] Allergies Allergy/AdvReac Type Severity Reaction Status Date / Time Iodinated Contrast Media AdvReac Unknown Verified 01/01/24 11:57 [Iodinated Contrast- Oral and IV Dye] shellfish derived AdvReac NASAL SX, Verified 01/01/24 11:57 THROAT SCRATCHY, POSITIVE ALLERGY TESTING Surgical - Exam Vital Signs Temp Pulse Resp BP Pulse Ox 97.4 F L 76 16 153/78 98 01/01/24 12:03 01/01/24 12:03 01/01/24 12:03 01/01/24 12:03 01/01/24 12:03 Physical exam: General: Well-developed, well-nourished HEENT: Normocephalic, sclerae nonicteric Abdomen: Nontender, nondistended Extremities: No edema Neuro: Alert and oriented Assessment and Plan (1) Colon cancer screening Narrative/Plan: Will proceed with colonoscopy at this time. Current Visit: Yes Status: Acute Code(s): Z12.11 - ENCOUNTER FOR SCREENING FOR MALIGNANT NEOPLASM OF COLON SNOMED Code(s): 772862973
--- NOTE | 2024-01-01 13:18 | P.PCN ---
Date of Procedure: 01/01/24 Procedure(s) Performed: PREOPERATIVE DIAGNOSIS: Colon cancer screening POSTOPERATIVE DIAGNOSIS: Diverticulosis PROCEDURE: Colonoscopy ANESTHESIA: MAC SURGEON: Chris Gomez M.D. SPECIMENS: None ENDOSCOPIC PROCEDURE: The patient was placed on the endoscopy table in the left decubitus position. The Olympus colonoscope was inserted into the anus and passed under direct visualization to the base of the cecum. The appendiceal orifice was visualized. From that point the scope was slowly withdrawn inspe cting all surfaces carefully. There were no neoplastic inflammatory or polypoid lesions throughout the cecum, ascending, transverse, descending, sigmoid and rectum. There was scattered diverticulosis noted throughout the colon. Digital rectal examination was normal. The patient was taken to the recovery room in stable condition per anesthesia guidelines. RECOMMENDATIONS: Resume diet. Repeat colonoscopy 10 years.
[2024-01-01 13:36] VITALS: BP 116/72; PULSE 78; RESP 17
== END 2024-01-01 14:14 | disposition home or self-care (01) ==
LOC: ORWHC2ENDO 11:41
PROVIDERS: ATTEND Surgery
DX: Z12.11 Encounter for screening for malignant neoplasm of colon (principal); K57.30 Diverticulosis of large intestine without perforation or abscess without bleeding; E78.5 Hyperlipidemia, unspecified; Z85.46 Personal history of malignant neoplasm of prostate; Z86.718 Personal history of other venous thrombosis and embolism; Z91.041 Radiographic dye allergy status; Z98.890 Other specified postprocedural states; Z79.01 Long term (current) use of anticoagulants; Z91.013 Allergy to seafood; Z79.899 Other long term (current) drug therapy; Z90.79 Acquired absence of other genital organ(s)
CPT/HCPCS: 45378; J2704

== ENCOUNTER 2024-08-15 10:23 | Emergency (ER) | payer BC, MEDICARE ==
--- NOTE | 2024-08-15 11:43 | ED ---
Extremity Problem HPI - General Chief complaint: Extremity Problem,Nontraumatic Stated complaint: L leg pain Time Seen by Provider: 08/15/24 11:07 Source: patient, RN notes reviewed Mode of arrival: ambulatory Limitations: no limitations - History of Present Illness Initial comments: 63-year-old male presents emergency room for complaint of lump, swelling to his left leg. Patient states he has a history of DVT, history of multiple varicose veins with increasing superficial clots was placed on Eliquis states he takes 5 mg twice daily notice that he is on his feet most the day yesterday has not worn his compression stockings he noticed increasing swelling in his mid thigh with some discomfort no redness. Patient denies any fevers or chills denies chest pain shortness of breath - Related Data Home Medications Medication Instructions Recorded Confirmed Fenofibrate [Lofibra] 160 mg PO AC-SUPPER 11/26/14 01/01/24 Previous Rx's Medication Instructions Recorded Apixaban [Eliquis Starter Pack 0 mg PO DIRECTED 30 Days #1 pack 08/05/19 (for VTE)] Allergies Allergy/AdvReac Type Severity Reaction Status Date / Time Iodinated Contrast Media AdvReac Unknown Verified 08/15/24 10:57 [Iodinated Contrast- Oral and IV Dye] shellfish derived AdvReac NASAL SX, Verified 08/15/24 10:57 THROAT SCRATCHY, POSITIVE ALLERGY TESTING Review of Systems ROS Statement: Those systems with pertinent positive or pertinent negative responses have been documented in the HPI. ROS Other: All systems not noted in ROS Statement are negative. Past Medical History Past Medical History: Cancer, Deep Vein Thrombosis (DVT), Hyperlipidemia, Prostate Disorder Additional Past Medical History / Comment(s): Prostate cancer, History of Any Multi-Drug Resistant Organisms: None Reported Past Surgical History: Hernia Repair, Joint Replacement, Orthopedic Surgery, Prostate Surgery Additional Past Surgical History / Comment(s): prostate removed, right hip replacement, arthroplasty to left thumbm colonoscopy Past Anesthesia/Blood Transfusion Reactions: No Reported Reaction Additional Past Anesthesia/Blood Transfusion Reaction / Comment(s): no blood transfusion Past Psychological History: No Psychological Hx Reported Smoking Status: Never smoker Past Alcohol Use History: Rare Past Drug Use History: None Reported - Past Family History Mother Family Medical History: Cancer Additional Family Medical History / Comment(s): PANCREATIC Father Family Medical History: Cancer Additional Family Medical History / Comment(s): PARKINSON'S, skin General Exam Limitations: no limitations General appearance: alert, in no apparent distress Head exam: Present: atraumatic, normocephalic, normal inspection Respiratory exam: Present: normal lung sounds bilaterally. Absent: respiratory distress, wheezes, rales, rhonchi, stridor Cardiovascular Exam: Present: regular rate, normal rhythm, normal heart sounds. Absent: systolic murmur, diastolic murmur, rubs, gallop, clicks Extremities exam: Present: other (Left thigh there are multiple varicose veins noted, mild tenderness neurovasc intact no erythema) Course Vital Signs 08/15/24 08/15/24 10:58 12:40 Temperature 98.6 F 98 F Pulse Rate 79 66 Respiratory 18 16 Rate Blood Pressure 143/87 129/84 O2 Sat by Pulse 97 97 Oximetry Medical Decision Making - Medical Decision Making Was pt. sent in by a medical professional or institution (, PA, SALES PROMOTION OFFICER, urgent care, hospital, or senior living...) When possible be specific @ -No Did you speak to anyone other than the patient for history (EMS, parent, family, police, friend...)? What history was obtained from this source @ -No Did you review nursing and triage notes (agree or disagree)? Why? @ -I reviewed and agree with nursing and triage notes Were old charts reviewed (outside hosp., previous admission, EMS record, old EKG, old radiological studies, urgent care reports/EKG's, senior living records)? Report findings @ -No old charts were reviewed Differential Diagnosis (chest pain, altered mental status, abdominal pain women, abdominal pain men, vaginal bleeding, weakness, fever, dyspnea, syncope, headache, dizziness, GI bleed, back pain, seizure, CVA, palpatations, mental health, musculoskeletal)? @ -DVT, SVT, chronic DVT EKG interpreted by me (3pts min.). @ -None X-rays interpreted by me (1pt min.). @ -None done CT interpreted by me (1pt min.). @ -None done U/S interpreted by me (1pt. min.). @ -Ultrasound venous Doppler shows chronic DVT, no evidence of acute DVT. What testing was considered but not performed or refused? (CT, X-rays, U/S, labs)? Why? @ -None What meds were considered but not given or refused? Why? @ -None Did you discuss the management of the patient with other professionals (professionals i.e. , PA, SALES PROMOTION OFFICER, lab, RT, psych nurse, adoption social worker, eeo officer, teacher, access control officer, case filler)? Give summary @ -No Was smoking cessation discussed for >3mins.? @ -No Was critical care preformed (if so, how long)? @ -No Were there social determinants of health that impacted care today? How? (Homelessness, low income, unemployed, alcoholism, drug addiction, transportation, low edu. Level, literacy, decrease access to med. care, prison, rehab)? @ -No Was there de-escalation of care discussed even if they declined (Discuss DNR or withdrawal of care, Hospice)? DNR status @ -No What co-morbidities impacted this encounter? (DM, HTN, Smoking, COPD, CAD, Cancer, CVA, ARF, Chemo, Hep., AIDS, mental health diagnosis, sleep apnea, morbid obesity)? @ -None Was patient admitted / discharged? Hospital course, mention meds given and route, prescriptions, significant lab abnormalities, going to OR and other perti nent info. @ -Charge patient has no evidence of DVT only chronic DVT. Patient has varicose veins noted. Patient will be discharged in stable condition. Undiagnosed new problem with uncertain prognosis? @ -No Drug Therapy requiring intensive monitoring for toxicity (Heparin, Nitro, Insulin, Cardizem)? @ -No Were any procedures done? @ -No Diagnosis/symptom? @ -Varicose vein, chronic DVT Acute, or Chronic, or Acute on Chronic? @ -[Acute Uncomplicated (without systemic symptoms) or Complicated (systemic symptoms)? @ -Uncomplicated Side effects of treatment? @ -No Exacerbation, Progression, or Severe Exacerbation? @ -No Poses a threat to life or bodily function? How? (Chest pain, [place], [place], pneumonia, PE, COPD, DKA, ARF, appy, cholecystitis, CVA, Diverticulitis, Homicidal, Suicidal, threat to staff... and all critical care pts) @ -No Disposition Clinical Impression: Chronic deep vein thrombosis (DVT), Varicose vein of leg Disposition: HOME SELF-CARE Condition: Stable Instructions (If sedation given, give patient instructions): Superficial Thrombophlebitis (ED) Additional Instructions: Please return to the Emergency Department if symptoms worsen or any other concerns. Is patient prescribed a controlled substance at d/c from ED?: No Referrals: Glen Degroot MD [Primary Care Provider] - 1-2 days Time of Disposition: 12:28
--- NOTE | 2024-08-15 12:21 | US ---
EXAMINATION TYPE: US venous doppler duplex LE LT DATE OF EXAM: 08/15/2024 12:02 PM COMPARISON: US 2019 CLINICAL INDICATION: Male, 63 years old with history of pain; Pt states pain left medial thigh, histo ry of DVT and SVT left leg, pt currently on blood thinners, Pain TECHNIQUE: The lower extremity deep venous system is examined utilizing real time linear array sonog kristin with graded compression, color doppler sonography, and spectral doppler. SIDE PERFORMED: Left FINDINGS: VESSELS IMAGED: Common Femoral Vein Deep Femoral Vein Greater Saphenous Vein * Femoral Vein Popliteal Vein Small Saphenous Vein * Proximal Calf Veins (* superficial vessels) Left Leg: No evidence of acute DVT- internal echoes within femoral vein, popliteal vein, and GSV sug gesting chronic non-occluding thrombus, similar in appearance when compared to prior in 2019 , Color Doppler imaging shows patency of the vessels. Spectral waveforms are within normal limits. IMPRESSION: Evidence of old chronic DVT in the left lower extremity. No acute DVT identified [facility], , 08/15/2024 12:18 PM
[2024-08-15 12:41] VITALS: BP 129/84; PULSE 66; RESP 16; TEMP 98
== END 2024-08-15 12:41 | disposition home or self-care (01) ==
LOC: EC 10:23
DX: I82.502 Chronic embolism and thrombosis of unspecified deep veins of left lower extremity (principal); I83.892 Varicose veins of left lower extremity with other complications; Z91.041 Radiographic dye allergy status; Z91.013 Allergy to seafood
CPT/HCPCS: 99283